=== PATIENT | female | born 1990 | race Hispanic/Latino ===

== ENCOUNTER 2020-08-03 04:32 | Emergency (ER) | payer SELFPAY ==
[2020-08-03] MEDS ORDERED: ACETAMINOPHEN 500 MG TAB PO ONE (04:41)
[2020-08-03] MEDS ORDERED: SODIUM CHLORIDE 0.9% 1000 ML 1,000 ML IV ONE (04:48)
--- NOTE | 2020-08-03 04:48 | Emergency Department Report ---
- General Chief Complaint: Fever Stated Complaint: BODYACHE/HEADACHE Source: patient Mode of arrival: Ambulatory Limitations: No Limitations - History of Present Illness Initial Comments: Patient is 30-year-old female with a history of hypertension and seizures who presents to the ED with acute onset persistent severe diffuse body aches and pains, intermittent fever and chills, nasal and sinus congestion, headache, mild dry cough for the last 2 days. Patient states that her own mother is currently admitted with COVID-19 viral infection at another hospital and that her uncle also has COVID-19 viral infection but is currently self quarantine at home. Patient states that she was exposed to this family members with Covid about 1 week ago. Patient states that she has been taking [id number]-[id number] medications with no relief. Patient denies dizziness, syncope, chest pain, shortness of breath, abdominal pain, nausea, vomiting, diarrhea, sore throat, dysuria, urinary frequency and urgency,change in vision or vaginal discharge. MD Complaint: fever, cough, rhinorrhea, nasal congestion, other (diffuse body aches and pain) -: Sudden, days(s) (2) Severity: severe Severity scale (0 -10): 8 Quality: sharp, aching Consistency: constant Improves With: nothing Worsens With: nothing Context: sick contacts (Exposed to Covid-19 BY FAMILY) Associated Symptoms: denies other symptoms, fever, chills, myalgias, headache, rhinorrhea, nasal congestion, cough. denies: sore throat, chest pain, abdominal pain, nausea, vomiting, diarrhea, dysuria, rash, right sweats, weight loss, epistaxis, hoarseness, ear pain, other Treatments Prior to Arrival: Ibuprofen - Related Data Previous Rx's Medication Instructions Recorded Last Taken Type Acetaminophen [Tylenol] 500 mg PO Q6HR PRN #30 tablet 08/03/20 Unknown Rx Azithromycin [Zithromax Z-ANDRAE] 250 mg PO DAILY #6 tablet 08/03/20 Unknown Rx Benzonatate [Tessalon Perles] 100 mg PO Q8HR #30 capsule 08/03/20 Unknown Rx Ondansetron [Zofran Odt] 4 mg PO Q6HR PRN #20 tab.rapdis 08/03/20 Unknown Rx Allergies Allergy/AdvReac Type Severity Reaction Status Date / Time Iodinated Contrast Media Allergy Rash Verified 08/03/20 05:09 vancomycin Allergy Rash Verified 08/03/20 05:10 ED Review of Systems ROS: Stated complaint: BODYACHE/HEADACHE Other details as noted in HPI Constitutional: chills, fever, malaise Eyes: denies: eye pain, eye discharge, vision change ENT: congestion. denies: ear pain, throat pain Respiratory: cough. denies: shortness of breath, wheezing Cardiovascular: denies: chest pain, palpitations Endocrine: no symptoms reported Gastrointestinal: denies: abdominal pain, nausea, vomiting, diarrhea Genitourinary: denies: urgency, dysuria, discharge Musculoskeletal: back pain, arthralgia, myalgia. denies: joint swelling Skin: denies: rash, lesions Neurological: headache. denies: weakness, paresthesias Psychiatric: denies: anxiety, depression Hematological/Lymphatic: denies: easy bleeding, easy bruising ED Past Medical Hx - Past Medical History Previous Medical History?: Yes Hx Hypertension: Yes Hx Seizures: Yes - Surgical History Past Surgical History?: No - Social History Smoking Status: Current Every Day Smoker Substance Use Type: None - Medications Home Medications: Home Medications Medication Instructions Recorded Confirmed Last Taken Type Acetaminophen [Tylenol] 500 mg PO Q6HR PRN #30 tablet 08/03/20 Unknown Rx Azithromycin [Zithromax Z-ANDRAE] 250 mg PO DAILY #6 tablet 08/03/20 Unknown Rx Benzonatate [Tessalon Perles] 100 mg PO Q8HR #30 capsule 08/03/20 Unknown Rx Ondansetron [Zofran Odt] 4 mg PO Q6HR PRN #20 tab.rapdis 08/03/20 Unknown Rx ED Physical Exam - General Limitations: No Limitations General appearance: alert, in no apparent distress - Head Head exam: Present: atraumatic, normocephalic, normal inspection - Eye Eye exam: Present: normal appearance, PERRL, EOMI Pupils: Present: normal accommodation - ENT ENT exam: Present: normal orophraynx, mucous membranes moist, other (Grossly congested nasal passages) - Neck Neck exam: Present: normal inspection, full ROM - Respiratory Respiratory exam: Present: normal lung sounds bilaterally. Absent: respiratory distress, wheezes, rales, stridor, chest wall tenderness, accessory muscle use, decreased breath sounds - Cardiovascular Cardiovascular Exam: Present: regular rate, normal rhythm, normal heart sounds. Absent: systolic murmur, diastolic murmur, rubs, gallop - GI/Abdominal GI/Abdominal exam: Present: soft, normal bowel sounds. Absent: tenderness, guarding, rebound, hyperactive bowel sounds, hypoactive bowel sounds, organomegaly - Extremities Exam Extremities exam: Present: normal inspection, full ROM, normal capillary refill - Back Exam Back exam: Present: normal inspection, full ROM. Absent: tenderness, CVA tenderness (R), CVA tenderness (L), muscle spasm, paraspinal tenderness, vertebral tenderness - Neurological Exam Neurological exam: Present: alert, oriented X3, CN II-XII intact, normal gait, reflexes normal - Psychiatric Psychiatric exam: Present: normal affect, normal mood - Skin Skin exam: Present: warm, dry, intact, normal color. Absent: rash ED Course Vital Signs 08/03/20 08/03/20 04:38 06:22 Temperature 98.3 F 98.3 F Pulse Rate 83 66 Respiratory 18 14 Rate Blood Pressure 179/100 Blood Pressure 204/114 [Right] O2 Sat by Pulse 99 98 Oximetry ED Medical Decision Making - Lab Data Result diagrams: 08/03/20 04:54 08/03/20 04:54 - Radiology Data Radiology results: report reviewed, image reviewed Chest x-ray shows no acute cardiopulmonary abnormalities or pneumonitis. - Medical Decision Making This is 30-year-old female with a history of hypertension and seizures who presents to the ED with acute onset persistent severe diffuse body aches and pains, intermittent fever and chills, nasal and sinus congestion, headache, mild dry cough for the last 2 days. Patient states that her own mother is currently admitted with COVID-19 viral infection at another hospital and that her uncle also has COVID-19 viral infection but is currently self quarantine at home. Patient states that she was exposed to this family members with Covid about 1 week ago. Patient states that she has been taking chox-tue-bluijgg medications with no relief. In the ED, patient is alert and oriented x3 and is not in distress but hypertensive in triage. Patient was treated in the ED for pain with Tylenol, and also given normal saline 1 L IV bolus x1. In the ED, patient vital signs were rechecked and the blood pressure improved. Lab test results were reviewed and are all nonactionable and chest x-ray shows no acute cardiopu lmonary abnormalities or pneumonitis. Rapid influenza and rapid strep test results were negative. Urinalysis test test is negative. On reevaluation, patient's blood pressure improved, patient's oxygen saturation ranged from 97% to 100% in room air. Patient was discharged home and advised to get a Covid 19 viral diagnostic test in the outpatient clinics and to self quarantine for 10 days if her test is positive. Patient was advised to return to the ED immediately if her symptoms get worse. - Differential Diagnosis Pneumonia; URI; COVID-19; bronchitis; UTI Critical care attestation.: If time is entered above; I have spent that time in minutes in the direct care of this critically ill patient, excluding procedure time. ED Disposition Clinical Impression: Fever and chills, Acute upper respiratory infection, Suspected COVID-19 virus infection, Close exposure to COVID-19 virus Acute bronchitis Qualifiers: Bronchitis organism: other organism Qualified Code(s): J20.8 - Acute bronchitis due to other specified organisms Disposition: DC- TO HOME OR SELFCARE Is pt being admited?: No Does the pt Need Aspirin: No Condition: Stable Instructions: Acute Bronchitis, Adult, [id number], Upper Respiratory Infection, Adult, [id number], Acute Bronchitis (ED), Fever, Adult, [id number] Additional Instructions: Chest x-ray shows no acute cardiopulmonary abnormalities or pneumonitis. All lab test results were reviewed and are all nonactionable. Therefore take med ications with food, drink plenty of fluids and obtain COVID-19 viral diagnostic test in the outpatient clinics and self quarantine for 10 days if positive. Otherwise return to the ED immediately if symptoms get worse. Prescriptions: Acetaminophen [Tylenol] 500 mg PO Q6HR PRN #30 tablet PRN Reason: Pain , Severe (7-10) Benzonatate [Tessalon Perles] 100 mg PO Q8HR #30 capsule Azithromycin [Zithromax Z-ANDRAE] 250 mg PO DAILY #6 tablet Ondansetron [Zofran Odt] 4 mg PO Q6HR PRN #20 tab.rapdis PRN Reason: Nausea Referrals: [facility] [Provider Group] - 7-10 days Forms: Work/School Release Form(ED) Time of Disposition: 07:22 Print Language: DIVEHI
[2020-08-03 05:11] LABS: Hematocrit 44.1 % (30.3-42.9); Hemoglobin 14.9 gm/dl (10.1-14.3); Mean Corpuscular HGB Conc 34 % (30-34); Mean Corpuscular Volume 92 fl (79-97); Platelet Count 196 K/mm3 (140-440); Red Blood Count 4.78 M/mm3 (3.65-5.03)
[2020-08-03 05:20] LABS: Alanine Aminotransferase 15 units/L (7-56); Albumin 3.9 g/dL (3.9-5); Blood Urea Nitrogen 8 mg/dL (7-17); Calcium 9.4 mg/dL (8.4-10.2); Hemolysis Index 0
--- NOTE | 2020-08-03 05:23 | XRay Report ---
XR chest 1V ap INDICATION / CLINICAL INFORMATION: cough, fever COMPARISON: None available. FINDINGS: SUPPORT DEVICES: None. HEART / MEDIASTINUM: No significant abnormality. LUNGS / PLEURA: Lungs are clear. Costophrenic sulci are sharp. No pneumothorax. ADDITIONAL FINDINGS: No significant additional findings. IMPRESSION: 1. No acute findings. Signer Name: Conrad Reddy MD Signed: 08/03/2020 5:19 AM Workstation Name: [id number]
[2020-08-03 05:40] LABS: BUN/Creatinine Ratio 13
[2020-08-03 06:13] LABS: Anisocytosis 1+; Band Neutrophils # (Manual) 0.1 K/mm3; Platelet Estimate Consistent w Auto; Total Cells Counted 100
[2020-08-03 06:27] VITALS: BP 179/100
[2020-08-03 07:07] LABS: Amorphous Crystals,Urine Few; Bacteria,Urine 1+ /HPF (Negative); Bilirubin,Urine NEG (Negative); Blood,Urine LG (Negative); Color,Urine Yellow (Yellow); Mucus,Urine 1+ /HPF
== END 2020-08-03 09:02 | disposition home or self-care (01) ==
LOC: ED 04:32
DX: J06.9 Acute upper respiratory infection, unspecified (principal); J20.8 Acute bronchitis due to other specified organisms; R50.9 Fever, unspecified; I10 Essential (primary) hypertension; F17.200 Nicotine dependence, unspecified, uncomplicated; Z79.899 Other long term (current) drug therapy; Z88.8 Allergy status to other drugs, medicaments and biological substances; Z91.041 Radiographic dye allergy status; Z86.69 Personal history of other diseases of the nervous system and sense organs; Z20.828 Contact with and (suspected) exposure to other viral communicable diseases
CPT/HCPCS: 36415; 71045; 80053; 81001; 84703; 85007; 85025; 87400; 87430; 96360; 96361; 99284; J7030